=== PATIENT | female | born 2000 | race Two or more races ===

== ENCOUNTER → 2020-01-15 | Outpatient (REF) | payer OTHER ==
[2020-01-15 20:02] LABS: CHLAMYDIA DNA AMPLIFICATION NEGATIVE (NEGATIVE); GC DNA AMPLIFICATION NEGATIVE (NEGATIVE)
== END ==
LOC: M SFHCLERA 13:07
PROVIDERS: ATTEND Nurse Practitioner Family
DX: R30.0 Dysuria (principal); N89.8 Other specified noninflammatory disorders of vagina
CPT/HCPCS: 81002; 81025; 87070; 87086; 87661; G0463

== ENCOUNTER → 2020-04-23 | Outpatient (CLI) | payer OTHER ==
--- NOTE | 2020-04-23 16:09 | REP ---
EMERGENCY FIRST TRIMESTER OBSTETRIC SONOGRAPHY: HISTORY: Rule out ectopic. FINDINGS: Transabdominal and transvaginal scanning are performed. There is an intrauterine gestational sac. Embryonic pole measures 3 mm. This corresponds with a gestational age estimate of 5 weeks 6 days. heart rate is recorded at 101 beats per minute. No subchorionic hemorrhage is seen. There is a 2.2 cm somewhat hyperechoic area in the maternal left adnexa which may be corpus luteum. Maternal heart rate is recorded 69 beats per minute. IMPRESSION: Living intrauterine gestation at 5 weeks 6 days by crown-rump length. BRIA by sonography December 18, 2020. Electronically Signed by Jordi Roche MD 04/23/2020 05:46 P
== END ==
LOC: M RAD 14:03
PROVIDERS: ATTEND Registered Nurse Maternal Newborn
DX: Z36.89 Encounter for other specified antenatal screening (principal); Z3A.01 Less than 8 weeks gestation of pregnancy

== ENCOUNTER 2020-05-29 16:30 | Emergency (ER) | payer OTHER ==
[2020-06-25 11:34] LABS: APPEARANCE, URINE CLEAR (CLEAR); BACTERIA, URINE AUTO NEGATIVE (NEGATIVE); BILIRUBIN, URINE AUTO NEGATIVE (NEGATIVE); BLOOD, URINE BLOOD NEGATIVE (NEGATIVE); COLOR, URINE STRAW (YELLOW); GLUCOSE, URINE (UA) AUTO NEGATIVE (NEGATIVE); KETONE, URINE AUTO NEGATIVE (NEGATIVE); LEUKOCYTE ESTERASE, URINE AUTO NEGATIVE (NEGATIVE); NITRITE, URINE AUTO NEGATIVE (NEGATIVE); PROTEIN, URINE AUTO NEGATIVE (NEGATIVE); RBC, URINE AUTO 1 /HPF (0-3); SPECIFIC GRAVITY URINE AUTO 1.003 (1.002-1.035); SQUAMOUS EPITHELIAL CELL UR AU 2 /HPF (0-6); UROBILINOGEN, URINE AUTO 0.2 mg/dL (0.0-2.0); WBC, URINE AUTO 1 /HPF (0-3)
[2020-06-25 14:49] LABS: BASO % 0.4 % (0.0-1.0); EOS # 0.8 10^3/uL (0.0-0.5); EOS % 9.4 % (0.0-3.0); ERYTHROCYTE SEDIMENTATION RATE 10 mm/hr (0-20); HEMATOCRIT 36.7 % (36.0-47.0); HEMOGLOBIN 12.7 g/dl (12.0-15.5); LYMPH # 2.4 10^3/uL (1.5-5.0); MEAN CORPUSCULAR HGB CONC 34.6 g/dl (32.0-36.5); MEAN CORPUSCULAR VOLUME 89.5 fl (80.0-96.0); MONO # 0.4 10^3/uL (0.0-0.8); MONO % 4.5 % (0.0-5.0); NEUTROPHILS # 4.7 10^3/uL (1.5-8.5); NEUTROPHILS % 56.5 % (36.0-66.0); PLATELET COUNT, AUTOMATED 219 10^3/uL (150-450); WHITE BLOOD COUNT 8.4 10^3/uL (4.0-10.0)
[2020-07-06 08:18] LABS: BLOOD UREA NITROGEN 8 MG/DL (7-18); CARBON DIOXIDE LEVEL 27 mmol/L (20-29); CHLORIDE LEVEL 107 MEQ/L (98-107); CREATININE FOR GFR 0.83 MG/DL (0.55-1.30); GLUCOSE, FASTING 88 MG/DL (70-100); SODIUM LEVEL 139 MEQ/L (136-145)
[2020-07-06 08:19] LABS: ALT/SGPT 25 IU/L (0-32); BILIRUBIN,TOTAL 0.3 MG/DL (0.2-1.0); CALCIUM LEVEL 9.1 MG/DL (8.5-10.1); FREE T4 1.05 NG/DL (0.78-1.33); TOTAL PROTEIN 7.4 GM/DL (6.4-8.2)
[2020-07-06 08:20] LABS: HEMOGLOBIN A1c 5.2 %
== END 2020-05-29 18:50 | disposition home or self-care (01) ==
LOC: M ED 16:30
DX: O26.891 Other specified pregnancy related conditions, first trimester (principal); H53.8 Other visual disturbances; Z3A.11 11 weeks gestation of pregnancy

== ENCOUNTER 2020-06-08 20:48 | Day surgery (SDC) | payer OTHER ==
[2020-06-08] MEDS ORDERED: ceFAZolin 2 GM/D5W 50 ML IV BAG (J0690 PER 500MG) As Ordered ONE (20:54)
[2020-06-08] MEDS ORDERED: ACETAMINOPHEN 650 MG SUPP As Ordered ONE (20:54)
[2020-06-08] MEDS ORDERED: OXYTOCIN INJ 10 UNITS/ML VIAL (J2590) As Ordered ONE (21:06)
[2020-06-08] MEDS ORDERED: ROCURONIUM BROMIDE 50 MG/5 ML VIAL As Ordered ONE (21:06)
[2020-06-08] MEDS ORDERED: SUCCINYLCHOLINE 100 MG/5 ML SYRINGE (J0330) As Ordered ONE (21:06)
[2020-06-08] MEDS ORDERED: MIDAZOLAM INJ 2MG/2ML VIAL (J2250 PER 1MG) As Ordered ONE (21:07)
[2020-06-08] MEDS ORDERED: KETOROLAC 60MG 2ML VIAL As Ordered ONE (21:07)
[2020-06-08] MEDS ORDERED: propofoL 200 MG/20 ML VIAL As Ordered ONE (21:07)
[2020-06-08] MEDS ORDERED: dexameTHASONE 4 MG/ML 1ML VIAL (J1100 PER 1MG) As Ordered ONE (21:07)
[2020-06-08] MEDS ORDERED: SUGAMMADEX SODIUM 500 MG/5 ML VIAL (BRIDION) As Ordered ONE (21:07)
[2020-06-08] MEDS ORDERED: LIDOCAINE 2% 100MG/5ML SDV (FOR ANES.) As Ordered ONE (21:07)
[2020-06-08] MEDS ORDERED: fentaNYL 100 MCG/2 ML INJECTION (J3010) As Ordered ONE (21:07)
[2020-06-08] MEDS ORDERED: ONDANSETRON 4MG/2ML VIAL As Ordered ONE ×2 (21:07→21:54)
[2020-06-08] MEDS ORDERED: PERCOCET 5MG/325MG TAB As Ordered ONE (21:54)
[2020-06-08] MEDS ORDERED: ONDANSETRON 4MG/2ML VIAL ONE (21:54)
[2020-06-08] MEDS ORDERED: PERCOCET 5MG/325MG TAB ONE (21:54)
[2020-07-25 07:27] LABS: INR 1.01; PROTHROMBIN TIME 13.5 SECONDS (12.5-14.3)
[2020-07-25 09:34] LABS: HEMATOCRIT 24.3 % (36.0-47.0); HEMOGLOBIN 8.3 g/dl (12.0-15.5); MEAN CORPUSCULAR HEMOGLOBIN 30.6 pg (27.0-33.0); MEAN CORPUSCULAR HGB CONC 34.2 g/dl (32.0-36.5); MEAN CORPUSCULAR VOLUME 89.7 fl (80.0-96.0); PLATELET COUNT, AUTOMATED 204 10^3/uL (150-450); RED BLOOD COUNT 2.71 10^6/uL (4.00-5.40); WHITE BLOOD COUNT 8.6 10^3/uL (4.0-10.0)
--- NOTE | 2020-08-09 15:16 | HPE ---
DATE OF ADMISSION: 06/08/2020 HISTORY OF PRESENT ILLNESS: This lady was seen at the emergency department. She is a 19-year-old 1, para 0, at 11 weeks with last menstrual period (LMP) of 03/10/2020. She had gone to [place] to have an IUD placed and found that she was at that time. She had a spontaneous miscarriage and was seen at the clinic. She was given Toradol, ibuprofen, Tylenol, and iron for spontaneous resolution of the spontaneous . She came through emergency bleeding with clots, cramps, and tissue that was not passed. PAST MEDICAL HISTORY: Unremarkable. PAST SURGICAL HISTORY: None. MEDICATIONS: She is on vitamins, as well as Toradol, ibuprofen, Tylenol, and iron. 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 PHYSICAL EXAMINATION: GENERAL: She appears in moderate discomfort because of the contractions. VITAL SIGNS: She is 5 feet 3 inches, 54.2 kg. Blood pressure, pulse, and respirations are within normal limits. IMAGING: Ultrasound indicated that she had a normal uterus without thickness, heterogeneous, associated vascularity at 2.3 cm. No intrauterine was identified. Both ovaries appeared to be normal. ASSESSMENT AND PLAN: On direct speculum examination after consenting, she has a placenta that is retained in the upper cervical canal and lower cervical canal. We attempted to try and remove it with ring forceps and were unsuccessful. Therefore, the patient is going to be taken for a suction curettage at the next available opening. We discussed the risks and benefits of surgery including hemorrhage, infection, perforation, re-operating. Patient expressed understanding of the risks and benefits. Signed the consent form. All questions were answered. A 40 minute discussion. We await COVID testing and space in the OR. [facility]
--- NOTE | 2020-08-12 11:28 | RO ---
DATE OF OPERATION: 06/08/2020 PREOPERATIVE DIAGNOSIS: Retained products of conception post-spontaneous . POSTOPERATIVE DIAGNOSIS: Retained products of conception post-spontaneous . ANESTHESIA: General. ESTIMATED BLOOD LOSS: 50 mL. ATTENDING SURGEON: Doroteo Dinero MD PROCEDURE IN DETAIL: After an adequate time-out, prepped and draped in the lithotomy position. Bladder drained for 50 mL of clear urine. Acetaminophen suppository 1300 mg per rectum, Ancef 2 grams IV preoperatively. Weighted speculum in the vagina, a ring forceps on the anterior lip of the cervix, already dilated. The placenta had been adhered to the internal os and with a large ring forceps, we were able to extract out the entire placenta. The cervix was already dilated to a Hegar 12. Curved suction curette applied. Curettage to the cavity, smooth. Uterus replaced in the anatomical position, well contracted. The patient is A positive and did not require RhoGAM. We sent her to the recovery room in good condition. EDELMIRA
[2020-08-22 14:58] LABS: BLOOD UREA NITROGEN 9 MG/DL (7-18); CALCIUM LEVEL 8.8 MG/DL (8.5-10.1); CARBON DIOXIDE LEVEL 27 MEQ/L (21-32); CHLORIDE LEVEL 109 MEQ/L (98-107); CREATININE FOR GFR 0.75 MG/DL (0.55-1.30); GLUCOSE, FASTING 89 MG/DL (70-100); HCG, SERUM QUANTITATIVE 411 MIU/ML; POTASSIUM SERUM 3.8 MEQ/L (3.5-5.1); SODIUM LEVEL 142 MEQ/L (136-145)
== END 2020-06-08 21:29 | disposition home or self-care (01) ==
LOC: M SDC 20:48
PROVIDERS: ATTEND Obstetrics & Gynecology
DX: O03.4 Incomplete spontaneous abortion without complication (principal)
CPT/HCPCS: 59812; 76801; 76817; 80048; 84702; 85027; 85610; 86850; 86900; 86901; 88305; 93976; J0330; J0690; J1100; J1885; J2250; J2405; J2590; J3010; U0002

== ENCOUNTER → 2020-08-31 | Outpatient (CLI) | payer OTHER ==
--- NOTE | 2020-08-31 13:49 | REP ---
INDICATION: UNABLE TO FIND IUD. COMPARISON: None. TECHNIQUE: Transabdominal and transvaginal scanning were performed. FINDINGS: Uterine dimensions are normal at 7.3 x 4.3 x 5.5 cm. Endometrial echo is 6 mm thick and centrally placed. No free fluid is seen in the cul-de-sac. The bladder measures 7.3 x 4.4 x 8.4. The right ovary has dimensions of 3.2 x 1.8 x 1.8 cm. It's Doppler flow is normal with a resistive index of 0.68. The left ovary dimensions are normal as well at 3.2 x 2.4 x 2.3 cm. It's Doppler flow was normal with resistive index of 0.60. IUD is seen in the endometrial canal at the level of the body of the uterus. IMPRESSION: Normal pelvic sonography.IUD is seen in the endometrial canal at the level of the body of the uterus. <Electronically signed by Juan Faria > 08/31/20 [id number]
== END ==
LOC: M RAD 12:36
PROVIDERS: ATTEND Registered Nurse Maternal Newborn
DX: Z97.5 Presence of (intrauterine) contraceptive device (principal)